=== PATIENT | female | born 1975 | race African-American/Black ===

== ENCOUNTER 2016-10-22 22:28 | Emergency (ER) | payer OTHER ==
[~2016-10-22] VITALS: Ht 180.3 cm; Wt 94.0 kg
[~2016-10-22 22:28] MED LIST: CEPH500C3 PO; LOTR15T TOP
[2016-10-22 22:33] VITALS: BP 121/64; PULSE 80; RESP 18; TEMP 99.4; O2SAT 96
[2016-10-22 22:59] VITALS: BP 132/81; PULSE 78; RESP 18; O2SAT 99
[2016-10-23] MEDS ORDERED: IBUP-232 PO
[2016-10-23] MEDS ORDERED: CYCL1TAB29 PO
--- NOTE | 2016-10-23 00:01 | PD ---
HPI Chief Complaint: Back/ Neck Pain or Injury Time Seen by Provider: 23:43 Travel History International Travel<30 days: No Contact w/Intl Traveler<30days: No Traveled to known affect area: No History of Present Illness HPI The patient is a 41-year-old female that complains of neck and back pain for 2 days. She denies any injury. She denies any radiation of pain out of her arms or legs. She denies any bladder or bowel dysfunction. The patient has 2 jobs, one working at [employer] on the [employer] and the other in housekeeping. The patient does not want off work and wants to stay working. PFSH Past Medical History Diminished Hearing: No ?: Not LMP: 09-26-16 : 1 Miscarriage: 1 Social History Alcohol Use: Yes (OCC) Tobacco Use: Yes (4 CIGS PER DAY) Substance Use: No Allergies-Medications (Allergen,Severity, Reaction): Coded Allergies: No Known Allergies (Unverified , 10/22/16) Reported Meds & Prescriptions Reported Meds & Active Scripts Active Review of Systems Except as stated in HPI: all other systems reviewed are Neg Physical Exam Narrative GENERAL: The patient is alert, oriented 3 and slight apparent distress with her neck pain and back pain. Her vital signs are normal. She states there is no possibility of . SKIN: Focused skin assessment warm/dry. HEAD: Atraumatic. Normocephalic. EYES: Pupils equal and round. No scleral icterus. No injection or drainage. ENT: No nasal bleeding or discharge. Mucous membranes pink and moist. NECK: Trachea midline. No JVD. There is no posterior spinous process tenderness or deformity but there is bilateral trapezius tenderness over the neck. The tenderness goes out almost to the shoulders. CARDIOVASCULAR: Regular rate and rhythm. No murmur appreciated. RESPIRATORY: No accessory muscle use. Clear to auscultation. Breath sounds equal bilaterally. GASTROINTESTINAL: Abdomen soft, non-tender, nondistended. Hepatic and splenic margins not palpable. MUSCULOSKELETAL: No obvious deformities. No clubbing. No cyanosis. No edema. Straight leg raising is normal, deep tendon reflexes are 0/+1 bilaterally both patella and Achilles and pinprick is normal. All the tenderness is over the paraspinous muscle groups and there is no posterior spinous process deformity or tenderness. NEUROLOGICAL: Awake and alert. No obvious cranial nerve deficits. Motor grossly within normal limits. Normal speech. PSYCHIATRIC: Appropriate mood and affect; insight and judgment normal. Data Data Last Documented VS Vital Signs Date Time Temp Pulse Resp B/P Pulse Ox O2 Delivery O2 Flow Rate FiO2 10/22/16 22:59 78 18 132/81 99 Room Air 10/22/16 22:33 99.4 MDM Medical Decision Making Medical Screen Exam Complete: Yes Emergency Medical Condition: Yes Medical Record Reviewed: Yes Differential Diagnosis Herniated nucleus pulposus, muscle strain neck, muscle strain and low back, cervical radiculopathy, lumbar radiculopathy Narrative Course The patient appears to have muscle strain of the neck and low back. Plan: The most I can get the patient off work was 2 days on the housekeeping job. The patient needs rest and time. She'll be given Motrin and Flexeril. She will take the Flexeril mainly at night since it will make her sleepy. Diagnosis Primary Impression: Cervical strain, acute Additional Impression: Acute lumbosacral myofascial strain Additional Instructions: As we discussed, rest is probably the most important part of dealing with these muscle strains. You will get a prescription for 2 days off on the housekeeping job. The Flexeril is one tablet 3 times daily but do not take it 8 hours or less before work because it will make you sleepy. Med/Other Pt SpecificInfo: Prescription(s) given Scripts Ibuprofen 600 Mg Xst876 Mg PO TID #44 TAB Ref 0 Prov:Dayne Wong MD 10/23/16 Cyclobenzaprine (Flexeril)10 Mg Tab10 Mg PO HS #21 TAB Ref 0 Prov:Dayne Wong MD 10/23/16 Disposition: 01 DISCHARGE HOME Condition: Stable Dayne Wong MD Oct 23, 2016 00:01
[2016-10-23 00:06] VITALS: BP 141/70
[2016-10-23] MEDS ORDERED: IBUPROFEN 600 MG TAB PO ONE (00:15)
[2016-10-23] MEDS ORDERED: CYCLOBENZAPRINE HCL 10 MG TAB PO ONE (00:15)
== END 2016-10-23 00:17 | disposition home or self-care (01) ==
LOC: PHED 22:28
DX: S16.1XXA Strain of muscle, fascia and tendon at neck level, initial encounter (principal); X58.XXXA Exposure to other specified factors, initial encounter
CPT/HCPCS: 99283